=== PATIENT | female | born 1940 | race Asian ===

== ENCOUNTER 2017-03-05 06:30 | Day surgery (SDC) | payer OTHER ==
[~2017-03-05 06:30] MED LIST: SOD CHLORIDE 0.9% 1,000 ML IV
[2017-03-05] MEDS: TROPICAMIDE 1% 3 ML OPH OPER (07:21)
[2017-03-05] MEDS: CYCLOPENTOLATE/PHENYLEPH 2 ML OPH OPER (07:21)
[2017-03-05] MEDS: MOXIFLOXACIN 0.5% 3 ML OPH OPER (07:21)
[2017-03-05] MEDS: BROMFENAC SODIUM 1.7 ML OPH DROP OPER (07:22)
[2017-03-05] MEDS: CARBACHOL 0.01% 1.5 ML OPH INJ IO (08:20)
[2017-03-05] MEDS: DEXAMETHASONE 4 MG/ML 1 ML INJ INJ (08:20)
[2017-03-05] MEDS: CEFAZOLIN 1 GM INJ INJ (08:20)
== END 2017-03-05 10:13 | disposition home or self-care (01) ==
LOC: SDS 06:30
DX: H25.12 Age-related nuclear cataract, left eye (principal); I10 Essential (primary) hypertension
CPT/HCPCS: 66984

== ENCOUNTER 2018-01-14 06:50 | Day surgery (SDC) | payer OTHER ==
[2018-01-14] MEDS ORDERED: LIDOCAINE 2% (SDV) 5 ML INJ (07:00)
[2018-01-14] MEDS: SOD CHLORIDE 0.9% 1,000 ML IV (07:49)
[2018-01-14] MEDS: MOXIFLOXACIN 0.5% 3 ML OPH OPER (07:49)
[2018-01-14] MEDS: CYCLOPENTOLATE/PHENYLEPH 2 ML OPH OPER (07:49)
[2018-01-14] MEDS: DICLOFENAC 0.1% 2.5 ML OPH OPER (07:49)
[2018-01-14] MEDS: TROPICAMIDE 1% 3 ML OPH OPER (07:50)
[2018-01-14] MEDS: CARBACHOL 0.01% 1.5 ML OPH INJ (08:17)
[2018-01-14] MEDS: CEFAZOLIN 1 GM INJ (08:17)
[2018-01-14] MEDS ORDERED: LIDOCAINE 4% (MPF) 5 ML INJ (08:17)
[2018-01-14] MEDS ORDERED: NA HYALURONATE/CHONDROITIN 0.5 ML SYG (08:18)
[2018-01-14] MEDS: DEXAMETHASONE 4 MG/ML 1 ML INJ (08:18)
[2018-01-14] MEDS ORDERED: FENTAnyl 50 MCG/ML VIAL IV ×2 (08:30)
[2018-01-14] MEDS ORDERED: PROPOFOL 20 ML (08:36)
[2018-01-14] MEDS ORDERED: FENTAnyl 50 MCG/ML VIAL (08:47)
== END 2018-01-14 10:24 | disposition home or self-care (01) ==
LOC: SDS 06:50
DX: H25.11 Age-related nuclear cataract, right eye (principal); I10 Essential (primary) hypertension
CPT/HCPCS: 66984